=== PATIENT | female | born 1980 | race African-American/Black ===

== ENCOUNTER 2025-01-09 22:03 | Emergency (ER) | payer SELFPAY ==
[~2025-01-09] VITALS: Ht 157.5 cm; Wt 77.0 kg
[2025-01-09 22:19] VITALS: O2SAT 100
[2025-01-09] MEDS ORDERED: LIDO700A30 TP (23:34)
[2025-01-09] MEDS ORDERED: CYCL5TAB3 MT (23:34)
[2025-01-09] MEDS: ACETAMINOPHEN 325MG TABLET PO ONE (23:47)
[2025-01-09] MEDS: KETOROLAC 15MG/ML VIAL IM ONE (23:47)
[2025-01-09] MEDS: LIDOCAINE 5% PATCH TOP SCH (23:48)
[2025-01-10 00:53] VITALS: BP 113/65; PULSE 61; RESP 18; TEMP 36.9; O2SAT 100
== END 2025-01-10 01:06 | disposition home or self-care (01) ==
LOC: ER 22:03
DX: R07.89 Other chest pain (principal)
CPT/HCPCS: 99283; 71045; 81025; 96372; J1885